=== PATIENT | female | born 1970 | race Caucasian/White ===

== ENCOUNTER → 2019-06-19 | Outpatient (CLI) | payer MEDICARE, MEDICAID ==
--- NOTE | 2019-06-19 08:56 | Diagnostic Imaging Report ---
INDICATION: Chest pain. PA and lateral views were obtained. FINDINGS: The heart size, mediastinal configuration, and pulmonary vascularity are within normal limits. There is no pleural effusion, pneumothorax, or pneumonia. The osseous structures are unremarkable. IMPRESSION: No acute cardiopulmonary abnormality. Dictated by: Dictated on workstation # [id number]
== END ==
LOC: RAD FS 08:33
PROVIDERS: ATTEND Family Medicine
DX: R07.9 Chest pain, unspecified (principal)
CPT/HCPCS: 71046

== ENCOUNTER → 2021-01-27 | Outpatient (CLI) | payer MEDICARE, MEDICAID ==
--- NOTE | 2021-01-27 13:24 | Diagnostic Imaging Report ---
PROCEDURE: CT head without contrast. TECHNIQUE: Multiple contiguous axial images were obtained through the brain without the use of intravenous contrast. Auto Exposure Controls were utilized during the CT exam to meet ALARA standards for radiation dose reduction. INDICATION: Headache. FINDINGS: The ventricles and sulci are within normal limits. There is no hydrocephalus or cerebral edema. There is no midline shift or mass effect. There is no intracranial mass, hemorrhage, or extra-axial fluid collection. The visualized paranasal sinuses and mastoid air cells are clear. There are no regional areas of decreased attenuation appreciated to suggest an acute CVA. IMPRESSION: No acute intracranial abnormality. Dictated by: Dictated on workstation # [id number]
== END ==
LOC: RAD 13:15
PROVIDERS: ATTEND Student in an Organized Health Care Education/Training Program
DX: G44.89 Other headache syndrome (principal)
CPT/HCPCS: 70450